=== PATIENT | male | born 1970 | race American Indian/Alaskan Native ===

== ENCOUNTER 2016-11-19 07:12 | Emergency (ER) | payer MEDICAID ==
[2016-11-19 07:55] VITALS: BP 132/82
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
--- NOTE | 2016-11-19 08:32 | XRay Report ---
FINAL REPORT EXAM: XR HAND 3 RT HISTORY: RIGHT HAND INJURY / SWELLING / PAIN TECHNIQUE: Four views of the right hand. PRIORS: None. FINDINGS: There is a fracture involving the mid to distal 5th metacarpal. Portion of fractures through the metacarpal neck is angulated anteriorly. No other fracture seen. There is no evidence of joint dislocation. IMPRESSION: Anterior angulated 5th metacarpal fracture.
== END 2016-11-19 09:28 | disposition home or self-care (01) ==
LOC: ED 07:12
DX: S62.336A Displaced fracture of neck of fifth metacarpal bone, right hand, initial encounter for closed fracture (principal); F12.10 Cannabis abuse, uncomplicated; W22.01XA Walked into wall, initial encounter; Y93.89 Activity, other specified; Y92.89 Other specified places as the place of occurrence of the external cause; Y99.8 Other external cause status

== ENCOUNTER 2016-12-16 20:02 | Emergency (ER) | payer OTHER, MEDICAID ==
[2016-12-16] MEDS ORDERED: ZOFRAN IV ONE (21:11)
[2016-12-16] MEDS ORDERED: MORPHINE IV ONE (21:11)
[2016-12-16] MEDS ORDERED: ZOFRAN ONE (21:16)
[2016-12-16] MEDS ORDERED: MORPHINE ONE (21:16)
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
[2016-12-16 21:49] LABS: Basophils % (Auto) 0.8 % (0.0-1.8); Eosinophils % (Auto) 0.8 % (0.0-4.3); Hematocrit 40.9 % (35.5-45.6); Hemoglobin 13.5 gm/dl (11.8-15.2); Mean Corpuscular HGB Conc 33 % (32-34); Mean Corpuscular Hemoglobin 31 pg (28-32); Mean Corpuscular Volume 94 fl (84-94); Platelet Count 180 K/mm3 (140-440); Red Blood Count 4.34 M/mm3 (3.65-5.03); Red Cell Distribution Width 13.3 % (13.2-15.2); White Blood Count 4.3 K/mm3 (4.5-11.0)
[2016-12-16 22:01] LABS: INR 0.95 (0.87-1.13)
[2016-12-16 22:02] LABS: Partial Thromboplastin Time 29.7 Sec. (24.2-36.6)
[2016-12-16 22:06] LABS: Alanine Aminotransferase 10 units/L (7-56); Albumin 4.5 g/dL (3.9-5); Albumin/Globulin Ratio 1.8 %; Alkaline Phosphatase 61 units/L (35-129); Anion Gap 18 mmol/L; Blood Urea Nitrogen 9 mg/dL (9-20); Calcium 9.1 mg/dL (8.4-10.2); Carbon Dioxide 25 mmol/L (22-30); Chloride 103.8 mmol/L (98-107); Glucose 81 mg/dL (75-100); Potassium 4.3 mmol/L (3.6-5.0); Sodium 142 mmol/L (137-145)
[2016-12-16] MEDS ORDERED: NACL ONE (22:48)
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
[2016-12-17 01:13] VITALS: BP 114/68
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
--- NOTE | 2016-12-17 09:52 | XRay Report ---
RIGHT ELBOW, 3 views: History: Right elbow pain The bony architecture is intact without evidence of fracture or dislocation. Small olecranon spur is noted. Mild soft tissue swelling. IMPRESSION: Soft tissue swelling. A small olecranon spur. No obvious acute injury.
== END 2016-12-17 01:26 | disposition home or self-care (01) ==
LOC: ED 20:02
DX: S09.90XA Unspecified injury of head, initial encounter (principal); S16.1XXA Strain of muscle, fascia and tendon at neck level, initial encounter; S29.012A Strain of muscle and tendon of back wall of thorax, initial encounter; S30.1XXA Contusion of abdominal wall, initial encounter; S50.02XA Contusion of left elbow, initial encounter; V49.9XXA Car occupant (driver) (passenger) injured in unspecified traffic accident, initial encounter; Y93.89 Activity, other specified; Y99.9 Unspecified external cause status; Y92.410 Unspecified street and highway as the place of occurrence of the external cause
CPT/HCPCS: 36415; 70450; 72072; 72125; 73080; 74177; 80053; 85025; 85610; 85730; 86850; 86900; 86901; 96374; 96375; 99284; J2270; J2405; Q9967